=== PATIENT | female | born 1965 | race Caucasian/White ===

== ENCOUNTER 2017-06-22 14:48 | Emergency (ER) | payer BC ==
--- NOTE | 2017-06-22 14:55 | EDPHY ---
H & P Time Seen by Provider: 06/22/17 14:50 HPI/ROS: CHIEF COMPLAINT: Head injury HISTORY OF PRESENT ILLNESS: Patient fell off the ski lift today when she jumped off the chair to late and slipped on the icy exit ramp and landed on her back hitting her head. She was 1st seen in the [address] aid room at around 12:15 p.m.. She was transported by EMS with report of some confusion. She had a 4/10 headache initially but when I see year she does not have really any headache. Patient feels she is improving. She had nausea on the way down in the ambulance but currently does not. REVIEW OF SYSTEMS: Eye: no change in vision ENT: no sore throat Cardiac: no chest pain or syncope Pulmonary: no cough or SOB Abdomen: no vomiting, diarrhea, abdominal pain, +nausea as in HPI Musculoskeletal: no back pain, denies neck pain. Skin: no rash Neuro: HPI Constitutional: no fever : no urinary symptoms A comprehensive 10 point review of systems is otherwise negative aside from elements mentioned in the history of present illness. PAST MEDICAL HISTORY: Breast augmentation, DVT, asthma Social history: Visiting from General Appearance: Alert and conversant, cooperative. Eyes: No scleral icterus. ENT, Mouth: Normal mucous membranes. Respiratory: Normal respiratory effort, breath sounds equal, lungs are clear to auscultation. Cardiovascular: Regular rate and rhythm. Gastrointestinal: Abdomen is soft and non tender. Neurological: Alert, face symmetric, normal motor and sensory in extremities. She knows the month and the day of the week and remembers everything that happened but still isn't quite sure of the year, thinks it could be 2017 or 2018. She thinks that she looked at the time and fell down and had her injury at 1:30 p.m., but the EMS time line with suggest a was at least 1 hr prior. Skin: Warm and dry, no rashes. Musculoskeletal: No cervical thoracic or lumbar spine midline tenderness. A little bit of tenderness on the left side of the posterior chest over the medial scapula. No crepitus. No clavicular or extremity tenderness or deformity. Psychiatric: Not agitated. Emergency Department course/MDM: Per EMS the [address] aid room documented oxygen saturation is low was 72% at 12:16 p.m. And 86% at 1:15 p.m.. Patient here does not have any respiratory complaints and has initial saturation greater than 95% on room air. She says she really has minimal headache at this time. Plan for noncontrast head CT with head injury and still has some confusion including not knowing the year at least 3 hr after the incident. Discussed and consented. 1543: [facility], head CT negative for trauma. Cervical spine cleared clinically by myself, likely the patient has concussion. Warned no contact sports or risk of head injury until asymptomatic, and cleared by follow-up physician. Constitutional: Initial Vital Signs Temperature (C) 36.7 C 06/22/17 14:50 Heart Rate 93 06/22/17 14:50 Respiratory Rate 16 06/22/17 14:50 Blood Pressure 137/83 H 06/22/17 14:50 O2 Sat (%) 97 06/22/17 14:50 O2 Delivery Mode Room Air Allergies/Adverse Reactions: No Known Allergies Allergy (Unverified 06/22/17 14:57) Home Medications: Medication Instructions Recorded Benadryl 06/22/17 Sudafed 12-Hour 06/22/17 Medical Decision Making - Diagnostics Imaging Results: Imaging Impressions Head CT 06/22/17 15:03 Impression: There is no acute intracranial abnormality identified on this unenhanced CT evaluation. If there is further clinical concern regarding the patient's symptoms, MR imaging is suggested, if not otherwise contraindicated. Findings were discussed with KYUNG PARTIDA MD at 15:42, on 06/22/2017. Negative head CT per [facility] Imaging: Discussed imaging studies w/ fisher scallop Radiologist Differential Diagnosis: Differential diagnosis considered for head injury including but not limited to concussion, skull fracture, intraparenchymal contusion, subarachnoid, subdural and epidural hematoma. Departure - Departure Disposition: Home, Routine, Self-Care Clinical Impression: Concussion Qualifiers: Encounter type: initial encounter Loss of consciousness presence/duration: without LOC Qualified Code(s): S06.0X0A - Concussion without loss of consciousness, initial encounter Condition: Good Instructions: Concussion (ED) Additional Instructions: No skiing or other potentially contact sports until completely asymptomatic. Referrals: Felicia White MD [Medical Doctor] - As per Instructions
[2017-06-22 15:01] VITALS: RESP 16; TEMP 98.1; O2SAT 97
--- NOTE | 2017-06-22 16:06 | ASMTCAGE ---
CAGE Additional Comments Patient presents to ER after accident stepping off a chair lift. patient admits to having 1-2 glasses of wine with dinner "most night" Denies alcohol today. Accompanied by her and do not feel visit is R/T ETOH Date Signed: 06/22/2017 04:05 PM Electronically Signed By:Susu Malik RN
[2017-06-22 16:15] VITALS: BP 123/72; PULSE 81
== END 2017-06-22 16:10 | disposition home or self-care (01) ==
DX: S06.0X0A Concussion without loss of consciousness, initial encounter (principal); J45.909 Unspecified asthma, uncomplicated; V98.3XXA Accident to, on or involving ski lift, initial encounter; Y93.39 Activity, other involving climbing, rappelling and jumping off